=== PATIENT | female | born 1980 ===

== ENCOUNTER 2018-08-09 14:24 | Emergency (ER) | payer OTHER ==
[~2018-08-09] VITALS: Ht 160 cm; Wt 54.4 kg
== END 2018-08-09 17:37 | disposition home or self-care (01) ==
LOC: ER 14:24
DX: S82.842A Displaced bimalleolar fracture of left lower leg, initial encounter for closed fracture (principal); W18.39XA Other fall on same level, initial encounter; Y93.89 Activity, other specified; Y92.89 Other specified places as the place of occurrence of the external cause; Y99.8 Other external cause status